=== PATIENT | male | born 1995 | race Caucasian/White ===

== ENCOUNTER → 2017-04-27 | Outpatient (CLI) | payer OTHER ==
[2017-04-30 10:36] LABS: CONTROL LINE MONO EB INT CTR LINE PRESENT; MONO REFLEX EBV VCA IgM NEGATIVE (NEGATIVE)
== END ==
LOC: M WUC 11:49
PROVIDERS: ATTEND Physician Assistant
DX: J02.9 Acute pharyngitis, unspecified (principal)

== ENCOUNTER → 2018-03-07 | Outpatient (REF) | payer OTHER | LOC: M LAB REF 16:46 | DX: J02.9 Acute pharyngitis, unspecified (principal) | CPT/HCPCS: 87081 ==

== ENCOUNTER → 2019-10-30 | Outpatient (CLI) | payer OTHER ==
--- NOTE | 2019-10-31 03:50 | REP ---
Clinical: Cough . Comparison: 11/28/2006 . Technique: PA and lateral. Findings: The mediastinum and cardiac silhouette are normal. The lung madrigal are clear and without acute consolidation, effusion, or pneumothorax. The skeletal structures are intact and normal. Impression: 1. No acute cardiopulmonary process. Electronically Signed by Silvestre Loera MD 10/31/2019 03:42 A
== END ==
LOC: M WUC 18:10
PROVIDERS: ATTEND Physician Assistant
DX: R05 Cough (principal)